=== PATIENT | female | born 1985 | race African-American/Black ===

== ENCOUNTER 2016-12-08 15:57 | Inpatient (IN) ==
[2016-12-08 17:20] LABS: Apearance,Urine Slightly Hazy (Clear); Bilirubin,Urine Negative (Negative); Blood, Urine Negative (Negative); Glucose,Urine (UA) 50 mg/dL (Negative); Ketones,Urine Negative (Negative); Mucus,Urine Many /LPF (Occasional); Nitrite,Urine Negative (Negative); Protein,Urine >=500 MG/DL; RBC,Urine 4 /HPF (0-4); Squamous Epithelial Cell,Urine Few /HPF (0-10); Urine Color Yellow (Yellow); Urine Specific Gravity 1.026 (1.001-1.035); WBC,Urine 2 /HPF (0-6)
[2016-12-08 17:20] LABS: Basophils % 0.3 % (0.0-0.8); Eosinophils # 0.1 10*3/uL (0.0-0.87); Eosinophils % 0.7 % (0.00-10.9); Hematocrit 29.1 VOL% (35.7-47.0); Hemoglobin 9.7 GM/DL (12.0-16.0); Immature Granulocytes Absolute 0.08 #; Lymphocytes # 1.3 10*3/uL (1.4-4.0); Lymphocytes % 16.6 % (21.3-54.2); Mean Corpuscular HGB Conc 33.3 GM/DL (32-36); Mean Corpuscular Hemoglobin 30 PG (27-34); Mean Corpuscular Volume 89.5 FL (87-102); Mean Platelet Volume 11.5 FL (9.6-12.0); Monocytes # 0.5 10*3/uL (0.11-0.8); Monocytes % 6.6 % (1.7-12.7); Neutrophils # 5.8 10*3/uL (1.4-7.4); Neutrophils % 74.8 % (38.7-73.9); Platelet Count 167 T/CUMM (130-400); Red Blood Count 3.25 MC/CUMM (3.8-5.5); Red Cell Distribution Width 13.5 % (9.3-17.3); White Blood Count 7.7 T/CUMM (4-12)
[2016-12-08] MEDS ORDERED: NIFEdipine 10 MG CAPSULE PO ONE ×2 (17:25→23:00)
[2016-12-08 17:33] LABS: INR 0.9; PT Patient Result 9.9 SECS; Partial Thromboplastin Time 27.3 SECS (0-40)
[2016-12-08] MEDS ORDERED: ONDANSETRON 4 MG/2 ML VIAL IV PRN (17:34)
[2016-12-08] MEDS ORDERED: LACTATED RINGERS 500 ML IV PRN (17:34)
[2016-12-08 17:51] LABS: Alanine Aminotransferase 9 U/L (13-56); Albumin 2.5 G/DL (3.4-5.0); Alkaline Phosphatase 155 U/L (45-117); Aspartate Amino Transferase 18 U/L (0-37); Bilirubin,Total < 0.39 MG/DL (0.2-1.0); Blood Urea Nitrogen 8 MG/DL (7-18); Calcium 8.8 MG/DL (8.5-10.1); Glucose 89 MG/DL (74-106); Osmolality,Calculated 275.4 MOS/KG (273-304); Potassium 3.9 MMOL/L (3.5-5.1); Sodium 140 MMOL/L (136-145); Total Protein 6.7 G/DL (6.4-8.3); Uric Acid 3.8 MG/DL (2.6-6.0)
[2016-12-09] MEDS: LACTATED RINGERS 1,000 ML IV SCH ×3 (05:45→16:12)
[2016-12-09] MEDS ORDERED: CITRIC ACID/SODIUM CITRATE 30 ML UDCUP PO ONE (06:14)
[2016-12-09] MEDS ORDERED: FAMOTIDINE 20 MG/2 ML VIAL IV ONE (06:15)
[2016-12-09] MEDS ORDERED: OXYTOCIN/LR 20 UNIT/1,000 ML BAG IV ONE (06:15)
[2016-12-09 06:39] LABS: Basophils % 0.4 % (0.0-0.8); Eosinophils # 0.1 10*3/uL (0.0-0.87); Eosinophils % 0.9 % (0.00-10.9); Hematocrit 29.5 VOL% (35.7-47.0); Hemoglobin 9.6 GM/DL (12.0-16.0); Immature Granulocytes % 1.2 %; Immature Granulocytes Absolute 0.09 #; Lymphocytes # 1.5 10*3/uL (1.4-4.0); Lymphocytes % 19.3 % (21.3-54.2); Mean Corpuscular HGB Conc 32.5 GM/DL (32-36); Mean Corpuscular Hemoglobin 29 PG (27-34); Mean Corpuscular Volume 90.2 FL (87-102); Mean Platelet Volume 11.3 FL (9.6-12.0); Monocytes # 0.5 10*3/uL (0.11-0.8); Monocytes % 6.6 % (1.7-12.7); Neutrophils # 5.5 10*3/uL (1.4-7.4); Neutrophils % 71.6 % (38.7-73.9); Platelet Count 174 T/CUMM (130-400); Red Blood Count 3.27 MC/CUMM (3.8-5.5); Red Cell Distribution Width 13.5 % (9.3-17.3); White Blood Count 7.7 T/CUMM (4-12)
[2016-12-09 07:16] LABS: Albumin 2.4 G/DL (3.4-5.0); Bilirubin,Total 1.2 MG/DL (0.2-1.0); Calcium 8.2 MG/DL (8.5-10.1); Osmolality,Calculated 274.5 MOS/KG (273-304); Potassium 3.6 MMOL/L (3.5-5.1); Total Protein 6.6 G/DL (6.4-8.3); Uric Acid 3.4 MG/DL (2.6-6.0)
[2016-12-09] MEDS ORDERED: PHENYLEPHRINE 1 MG/10 ML SYRINGE IV ONE (07:28)
[2016-12-09] MEDS ORDERED: ceFAZolin 2,000 MG in PREMIX 1 EACH IV ONE (07:30)
--- NOTE | 2016-12-09 08:48 | Operative Note ---
Date of procedure: 12/09/16 Pre-op diagnosis: Deserosalization of the bowel Post-op diagnosis: same (Adhesion) Procedure: Procedure performed: Lysis of adhesions and repair of the deserosalization of the bowel Procedure in detail: Intraoperative consult obtained by Dr. Jay who is performing . I was asked to evaluate the bowel. Upon my arrival patient was opened through a Pfannenstiel incision. There is a loop of sigmoid colon traversing from the left lower quadrant down to the pubic region before making a sharp turn and folding back on itself. Is a small area of deserosalization. This portion of bowel was somewhat adherent to the pelvic structures causing short-term but no obvious obstruction or kinking. The adhesion pulling this into the pelvis over the uterus was lysed. The deserosalized area was oversewn with 3-0 Vicryl suture completely imbricating this area. There was no colotomy or enterotomy identified. There is minimal blood loss from my portion of the procedure. The remainder of the procedure was completed by Dr. Jay. Please see her operative report for more details regarding the operation. Anesthesia: spinal Surgeon / Physician: Tristin Lozano Estimated blood loss: other (Less than 5 cc for my portion) Specimens: none sent Condition: stable Disposition: PACU Results - Labs CBC & BMP: 12/09/16 06:27 12/09/16 06:27 Discharge Plan - Discharge Medications No Action Pnv No.95/Ferrous Fum/Folic AC [ Tablet] 1 each PO DAILY Labetalol Tab [Trandate Tab] 100 mg PO DAILY - Follow Up or Referral - Forms/Instructions
--- NOTE | 2016-12-09 09:09 | Operative Note ---
Date of procedure: 12/09/16 Pre-op diagnosis: IUP at 37w6d, CHTN,PIH,hx c/s x2, desires BTL Post-op diagnosis: same Procedure: Repeat low transverse with bilateral tubal ligation Findings infant female in the cephalic presentation nuchal cord 1 easily reduced Apgars were 8 9 weight 6 lbs. 10 oz. normal uterus tubes and ovaries bowel adhesions anteriorly The patient was consented for repeat section and bilateral tubal ligation risks benefits alternatives and complications were reviewed with the patient she was amenable to the procedure. The patient was thus taken back to the operating room where spinal anesthesia was found to be adequate and the patient was prepped and draped in the usual sterile fashion. A Pfannenstiel skin incision was made after a prior scar was excised and extended to the fascia the fascia was incised in the midline and extended laterally with Lezama scissors. The superior aspect of the fascial incision was dissected off the rectus muscle and as was the inferior aspect of the fascial incision is took a little bit of time due to scar tissue. The rectus muscle was divided in the midline the peritoneum entered and there was noted to be bowel right anteriorly to the left of the rectus muscle but with careful sharp dissection the rectus muscle and peritoneum was opened and extended laterally without notable injury to the bowel. The Marcello retractor was then introduced into the abdominal cavity and the vesicouterine peritoneum identified and entered sharply with Metzenbaum scissors and extended laterally and the bladder flap was then created digitally. The lower uterine segment was incised with a scalpel and extended laterally and superiorly amniotomy was performed and clear fluid was noted. The infant's head was delivered atraumatically at the nuchal was reduced at the incision site and the rest of the was delivered cord was clamped and cut and the was handed off to the waiting nurse team. The placenta was then removed manually uterus cleared of all clots and debris with a clean dry sponge. Due to the adhesions the Marcello retractor was then removed and the uterus was exteriorized. The lower uterine segment was repaired using 0 Vicryl in a running locked fashion 2 and a second imbricating layer to achieve excellent hemostasis. The first the right fallopian tube was identified and grasped with Babcocks and using a modified [place] fashion and a suture of 3 oh plain gut was introduced and a avascular area of mesosalpinx and tied front to back with the second reassuring type II create a knuckle of fallopian tube which was then excised. The same was done to the left side. Both knuckles of fallopian tube that had been excised were taken off the field. The uterus was then reintroduced into the abdominal cavity irrigation was performed Dr. Lozano was called to evaluate the bowel and please relate to his part of the surgery for details. Once he did his part of the surgery and left the muscle and peritoneum was reapproximated using 3-0 Vicryl in interrupted mattress fashion. The fascia was reapproximated using 0 Vicryl in a running fashion starting either angle and tying the middle. This obtains fat was reapproximated using 3-0 Vicryl in a running fashion. The skin was reapproximated using Ensorb but edyta. Sponge lap and instrument counts were correct 3. Anesthesia: spinal Surgeon / Physician: Rafia Aguilar Estimated blood loss: other (400) IV fluids: 2,000 Urine output: 600 (clear) Specimens: other (segment of rt and left tubes) Condition: stable Results - Labs CBC & BMP: 12/09/16 06:27 12/09/16 06:27 Discharge Plan - Discharge Medications No Action Pnv No.95/Ferrous Fum/Folic AC [ Tablet] 1 each PO DAILY Labetalol Tab [Trandate Tab] 100 mg PO DAILY - Follow Up or Referral Follow Up: Rafia Aguilar MD [Primary Care Provider] - - Forms/Instructions Instructions: Section (DC), Depression (GEN), Perineal Care (DC), Bleeding (DC)
[2016-12-09] MEDS ORDERED: MORPHINE 10 MG/10 ML VIAL ONE (09:19)
[2016-12-09] MEDS ORDERED: fentaNYL 100 MCG/2 ML VIAL ONE (09:19)
--- NOTE | 2016-12-09 09:21 | Anesthesia Post-Op ---
Anesthesia Post OP - Post Ansesthetic Evaluation Patient seen in post op: Yes Resp: within normal limits CV: within normal limits Mental: within normal limits Temp: within normal limits [id number]: within normal limits Nausea and Vomiting: within normal limits Pain: within normal limits
[2016-12-09 09:36] LABS: Apearance,Urine CLEAR (Clear); Bacteria,Urine Occasional /HPF (Few); Bilirubin,Urine Negative (Negative); Blood, Urine Negative (Negative); Glucose,Urine (UA) Negative (Negative); Ketones,Urine Negative (Negative); Mucus,Urine Occasional /LPF (Occasional); Nitrite,Urine Negative (Negative); Protein,Urine 100 MG/DL; RBC,Urine 1 /HPF (0-4); Squamous Epithelial Cell,Urine Occasional /HPF (0-10); Urine Color Straw (Yellow); Urine Specific Gravity 1.005 (1.001-1.035); Urine Urobilinogen < 2.0 EU/DL (0.2-1.0)
[2016-12-09] MEDS ORDERED: IBUPROFEN 800 MG TABLET PO PRN (16:16)
[2016-12-09] MEDS ORDERED: HYDROmorphone 2 MG/1 ML VIAL IV PRN (16:16)
[2016-12-10 06:58] LABS: Basophils % 0.3 % (0.0-0.8); Eosinophils % 0.2 % (0.00-10.9); Hematocrit 28.1 VOL% (35.7-47.0); Hemoglobin 9.3 GM/DL (12.0-16.0); Immature Granulocytes % 0.5 %; Immature Granulocytes Absolute 0.05 #; Lymphocytes # 1.2 10*3/uL (1.4-4.0); Lymphocytes % 12.9 % (21.3-54.2); Mean Corpuscular HGB Conc 33.1 GM/DL (32-36); Mean Corpuscular Hemoglobin 29 PG (27-34); Mean Corpuscular Volume 88.4 FL (87-102); Mean Platelet Volume 11.6 FL (9.6-12.0); Monocytes # 0.7 10*3/uL (0.11-0.8); Monocytes % 7.3 % (1.7-12.7); Neutrophils # 7.3 10*3/uL (1.4-7.4); Neutrophils % 78.8 % (38.7-73.9); Platelet Count 144 T/CUMM (130-400); Red Blood Count 3.18 MC/CUMM (3.8-5.5); Red Cell Distribution Width 13.5 % (9.3-17.3); White Blood Count 9.3 T/CUMM (4-12)
[2016-12-10] MEDS: LABETALOL 100 MG TABLET PO SCH (08:32)
[2016-12-10] MEDS: DOCUSATE SODIUM 100 MG CAPSULE PO SCH ×2 (08:33→20:05)
[2016-12-10] MEDS: oxyCODONE/ACETAMINOPHEN 5-325 MG TABLET PO PRN ×2 (10:19→20:05)
--- NOTE | 2016-12-10 12:12 | OB/GYN Progress Note ---
Assessment and Plan (1) Gestational hypertension Status: Acute Assessment and plan: POD#1 s/p Repeat /BTL/CRISTA at 37 + weeks for superimposed PIH . The pt is doing well . 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 Her pain and bleeding are under control Exam CELLAR PUMPER - Constitutional Vitals: Vital Signs Temp Pulse Resp BP Pulse Ox 12/10/16 11:52 97.9 F 80 20 139/91 98 12/10/16 07:18 98.6 F 55 L 20 149/93 98 12/10/16 04:00 97.8 F 56 L 18 153/90 97 12/09/16 23:55 98 F 54 L 19 159/92 99 12/09/16 19:44 98.5 F 73 19 143/92 99 12/09/16 15:17 97.1 F L 70 20 148/93 98 12/09/16 13:55 73 20 154/86 100 12/09/16 12:55 97.2 F L 80 20 161/86 100 General appearance: normal weight, no acute distress - Respiratory Respiratory exam: Absent: accessory muscle use - Cardiovascular Cardiovascular exam: Present: regular rate and rhythm - GI/Abdominal GI/Abdominal exam: Absent: guarding, tenderness, rebound - Extremities Exam Extremities exam: Absent: calf tenderness - Neurological Exam Neurological exam: Present: alert, oriented X3 Results - Labs CBC & BMP: 12/10/16 06:23 12/09/16 06:27
--- NOTE | 2016-12-10 12:24 | Pathology Report from [facility] ---
[facility] ACCESSION # : [id number] PATIENT NAME : Ana Eastman ORDERING DR : Rafia Jay MD CLINICAL HX: IUP @ 37.5 wks gestation, repeat C/S w/tubal due to induced HTN POST-OP DX: Smae SPECIMEN INFO: #1 RT fallopian tube segment #2 LT fallopian tube segment GROSS DESCRIPTION: #1 RT FALLOPIAN TUBE consists of an unfimbriated segment of pink-pastrana fallopian tube measuring 1.3 x 0.6 cm. Coffin Maker section submitted in cassette #1.#2 LT FALLOPIAN TUBE consists of an unfimbriated segment of pink-pastrana fallopian tube measuring 1.5 x 0.7 cm. Coffin Maker section submitted in cassette #2. DIAGNOSIS FOR ANA EASTMAN: #1 Completely transected segment of fallopian tube, right.#2 Completely transected segment of fallopian tube, left. COLLECTED DATE: 12/09/2016 [facility] REPORT DATE: 12/10/2016 ELECTRONICALLY SIGNED BY: Nasima Marcus M.D. 12/10/2016 - 10:05:18 [facility]Hal
[2016-12-10] MEDS: MAGNESIUM HYDROXIDE SUSP 30 ML UDCUP PO PRN ×2 (16:41→20:05)
[2016-12-11 07:18] VITALS: BP 149/100
--- NOTE | 2016-12-11 08:50 | Discharge Summary ---
Hospital Course - Hospital Course Hospital Course: The patient was admitted with high blood pressure and a history of repeat C- section and desiring tubal ligation and she underwent a repeat section with bilateral tubal ligation with lysis of adhesions on the day after admission. The surgery was without complications and the patient recovered well. Her blood pressures were moderately high postoperatively but she remained on blood pressure medication and no magnesium sulfate was required. Patient was to be discharged home on postoperative day #2 in good condition. Diagnosis - Discharge Diagnosis (1) Gestational hypertension Status: Acute Specialty Discharge - Follow Up or Referrals Follow up with: Rafia Aguilar MD [Primary Care Provider] - 1 Week Discharge Plan - Discharge Data Disposition: Disch To Home/Self Care Condition at Discharge: Stable Discharge Diet: advance to your usual diet Activity: no lifting Hygiene: may shower Weight Bearing at Discharge: full weight bearing Driving: not until seen by doctor Contact your physician if you experience:: fever over 101, Difficulty voiding, Redness or swelling, Nausea/Vomiting, Shortness of breath, Bleeding, pain uncontrolled by pain medications - Discharge Medications No Action Pnv No.95/Ferrous Fum/Folic AC [ Tablet] 1 each PO DAILY Labetalol Tab [Trandate Tab] 100 mg PO DAILY - Follow Up or Referral Follow Up: Rafia Aguilar MD [Primary Care Provider] - - Forms/Instructions Instructions: Section (DC), Depression (GEN), Perineal Care (DC), Bleeding (DC) Exam - Constitutional Vitals: Period Temp Pulse Resp BP Sys/Deleon Pulse Ox Last 24 Hr 97.8 F-98.9 F 63-83 17-20 135-156/78-100 98-100 General appearance: normal weight, no acute distress - Respiratory Respiratory exam: Absent: accessory muscle use - Cardiovascular Cardiovascular exam: Present: regular rate and rhythm - GI/Abdominal GI/Abdominal exam: Absent: guarding, rebound - Extremities Exam Extremities exam: Absent: calf tenderness - Neurological Exam Neurological exam: Present: alert, oriented X3 - Psychiatric Psychiatric exam: Present: normal affect, normal mood - Skin Skin exam: Present: normal color DS: Provider Date of admission: 12/09/16 08:17 Primary care physician: Rafia Vega- Attending physician on admission: Rafia Vega- Consults: 12/08/16 17:34 Consult to Anesthesiology [CONS] Routine Consulting Provider: Reason for Anesthesiology: Epidural Consult Comment: Epidural for pain managment Discharging clinician: Rafia Vega- Expected date of discharge: 12/11/16
[2016-12-11] MEDS: DOCUSATE SODIUM 100 MG CAPSULE PO SCH (08:51)
[2016-12-11] MEDS: LABETALOL 100 MG TABLET PO SCH (08:51)
[2016-12-11] MEDS: oxyCODONE/ACETAMINOPHEN 5-325 MG TABLET PO PRN (08:52)
[2016-12-11] MEDS ORDERED: LABETALOL 200 MG TABLET PO SCH (09:00)
[2016-12-11] MEDS ORDERED: DIPH/TET/ACEL PERT BOOSTER VACCINE 0.5 ML VIAL IM ONE (10:13)
== END 2016-12-11 11:35 | disposition home or self-care (01) | DRG 540 ==
LOC: N.LDOUT 15:57 → N.LD 15:59 → N.OB 12-09 12:24
PROVIDERS: ADMIT Obstetrics & Gynecology; ATTEND Obstetrics & Gynecology

== ENCOUNTER 2016-12-18 12:30 | Observation (INO) ==
[2016-12-18] MEDS ORDERED: MAGNESIUM HYDROXIDE SUSP 30 ML UDCUP PO PRN (12:35)
[2016-12-18] MEDS ORDERED: IBUPROFEN 800 MG TABLET PO PRN (12:35)
[2016-12-18] MEDS ORDERED: BISACODYL 10 MG SUPP RECTAL PRN (12:35)
[2016-12-18] MEDS ORDERED: ACETAMINOPHEN 325 MG TABLET PO PRN (12:35)
[2016-12-18] MEDS ORDERED: ONDANSETRON 4 MG/2 ML VIAL IV PRN (12:35)
[2016-12-18] MEDS ORDERED: amLODIPine 5 MG TABLET PO SCH ×2 (12:47→14:01)
[2016-12-18] MEDS ORDERED: MAGNESIUM SULF RIDER 4 GM in PREMIX 1 EACH IV ONE ×2 (12:55→18:00)
[2016-12-18 13:15] LABS: Basophils % 0.6 % (0.0-0.8); Eosinophils # 0.1 10*3/uL (0.0-0.87); Hematocrit 32.9 VOL% (35.7-47.0); Hemoglobin 10.6 GM/DL (12.0-16.0); Immature Granulocytes % 0.8 %; Immature Granulocytes Absolute 0.05 #; Lymphocytes # 1.6 10*3/uL (1.4-4.0); Lymphocytes % 25.4 % (21.3-54.2); Mean Corpuscular HGB Conc 32.2 GM/DL (32-36); Mean Corpuscular Hemoglobin 29 PG (27-34); Mean Corpuscular Volume 91.4 FL (87-102); Mean Platelet Volume 10.3 FL (9.6-12.0); Monocytes # 0.4 10*3/uL (0.11-0.8); Monocytes % 6.5 % (1.7-12.7); Neutrophils # 4.1 10*3/uL (1.4-7.4); Neutrophils % 65.7 % (38.7-73.9); Platelet Count 214 T/CUMM (130-400); Red Cell Distribution Width 14.6 % (9.3-17.3); White Blood Count 6.3 T/CUMM (4-12)
[2016-12-18 13:51] LABS: Alanine Aminotransferase 14 U/L (13-56); Alkaline Phosphatase 96 U/L (45-117); Aspartate Amino Transferase 26 U/L (0-37); Bilirubin,Total < 0.39 MG/DL (0.2-1.0); Blood Urea Nitrogen 11 MG/DL (7-18); Calcium 8.8 MG/DL (8.5-10.1); Glucose 84 MG/DL (74-106); Osmolality,Calculated 278.3 MOS/KG (273-304); Potassium 3.7 MMOL/L (3.5-5.1); Sodium 141 MMOL/L (136-145); Total Protein 7.7 G/DL (6.4-8.3)
[2016-12-18] MEDS ORDERED: amLODIPine 5 MG TABLET PO ONE (14:15)
[2016-12-18] MEDS: CHLORTHALIDONE 25 MG TABLET PO SCH (16:29)
[2016-12-18] MEDS ORDERED: MAGNESIUM SULF RIDER 100 ML IV ONE (17:41)
[2016-12-18] MEDS: DOCUSATE SODIUM 100 MG CAPSULE PO SCH (21:27)
[2016-12-19] MEDS: CHLORTHALIDONE 25 MG TABLET PO SCH (07:15)
[2016-12-19] MEDS: DOCUSATE SODIUM 100 MG CAPSULE PO SCH (08:35)
[2016-12-19] MEDS ORDERED: amLODIPine 5 MG TABLET PO SCH (09:00)
[2016-12-19 11:25] VITALS: BP 139/99
--- NOTE | 2016-12-19 12:40 | OB/GYN Progress Note ---
Assessment and Plan (1) Gestational hypertension Status: Acute Assessment and plan: PP PIH readmitted after delivery last week. Pt is feeling better and her BPs are under better control. D/c home on current medications. Precautions given. 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 She denies headaches or other issues. She is ready to go home Exam FREIGHT ADJUSTER - Constitutional Vitals: Vital Signs Temp Pulse Resp BP Pulse Ox 12/19/16 11:23 98.9 F 106 H 20 139/99 98 12/19/16 07:13 97.9 F 98 H 18 147/93 97 12/19/16 06:00 20 12/19/16 04:00 98.1 F 92 H 18 139/83 99 12/18/16 23:28 97.1 F L 87 18 139/94 99 12/18/16 22:00 18 12/18/16 21:00 88 18 153/91 99 12/18/16 19:42 99.0 F 90 20 148/84 99 12/18/16 18:25 94 H 20 146/95 98 12/18/16 16:00 98.3 F 81 20 142/87 98 General appearance: no acute distress - Respiratory Respiratory exam: Absent: accessory muscle use - Cardiovascular Cardiovascular exam: Present: regular rate and rhythm - Extremities Exam Extremities exam: Absent: calf tenderness - Neurological Exam Neurological exam: Present: alert, oriented X3 - Psychiatric Psychiatric exam: Present: normal affect, normal mood - Skin Skin exam: Present: normal color Results - Labs CBC & BMP: 12/18/16 13:01 12/18/16 13:01
== END 2016-12-19 12:55 | disposition home or self-care (01) ==
LOC: N.OB
PROVIDERS: ADMIT Obstetrics & Gynecology; ATTEND Obstetrics & Gynecology